=== PATIENT | female | born 1965 | race African-American/Black ===

== ENCOUNTER 2022-06-13 20:11 | Inpatient (IN) | payer OTHER ==
[2022-06-13 20:44] VITALS: BMI 16.6
[2022-06-13] MEDS ORDERED: MAG HYDROX/AL HYDROX/SIMETH 30 ML UNIT-DOSE CUP PO PRN (21:15)
[2022-06-13] MEDS ORDERED: BENZONATATE 200 MG CAPSULE PO PRN (21:15)
[2022-06-13] MEDS ORDERED: BENZOCAINE/MENTHOL (CHLORASEPTIC ) LOZENGE MM PRN (21:15)
[2022-06-13] MEDS ORDERED: ACETAMINOPHEN 325 MG TABLET (FP) PO PRN (21:15)
[2022-06-13] MEDS ORDERED: POLYETHYLENE GLYCOL (HEALTHYLAX) 3350 17 GM PACKET PO PRN (21:15)
[2022-06-13] MEDS ORDERED: NALOXONE HCL (KLOXXADO) 8 MG SPRAY NS PRN (21:15)
[2022-06-13] MEDS ORDERED: LOPERAMIDE HCL 2 MG CAPSULE PO PRN (21:15)
[2022-06-13] MEDS ORDERED: guaiFENesin 600 MG TABLET.ER (FP) PO PRN (21:15)
[2022-06-13] MEDS ORDERED: TUBERCULIN PPD 5 TU/0.1ML SYRINGE (IN PATIENT USE ONLY) ID ONE (21:15)
[2022-06-13] MEDS ORDERED: NALOXONE HCL 0.4 MG/ML VIAL IM PRN (21:15)
[2022-06-13] MEDS ORDERED: MAGNESIUM HYDROX 2400MG/30ML ORAL SUSPENSION 30 ML CUP PO PRN (21:15)
[2022-06-14] MEDS ORDERED: TUBERCULIN PPD 5 TU/0.1ML VIAL ID ONE (00:52)
[2022-06-14] MEDS: MELATONIN 5 MG TABLETS PO SCH ×2 (01:03→21:52)
[2022-06-14] MEDS: THIAMINE HCL 100 MG TABLET (FP) PO SCH ×2 (01:03→21:52)
[2022-06-14] MEDS: PRENATAL VITAMINS W/ FOLIC ACID TABLET (FP) PO SCH (10:41)
[2022-06-14] MEDS: NICOTINE 21 MG/24 HOURS TOPICAL PATCH TD SCH (10:41)
[2022-06-14 11:44] LABS: HEMATOCRIT 38.5 % (32.4-45.2); HEMOGLOBIN 13.2 GM/dL (10.7-15.3); MCH 33.9 pg (25.7-33.7); MCHC 34.2 g/dl (32.0-36.0); MEAN CELL VOLUME 98.9 fl (80-96); MEAN PLT VOLUME 8.5 fl (7.5-11.1); PLATELET COUNT 300 10^3/uL (134-434); RBC 3.89 M/mm3 (3.60-5.2); RDW 13.6 % (11.6-15.6); WHITE BLOOD COUNT 5.5 K/mm3 (4.0-10.0)
[2022-06-14 11:49] LABS: BLOOD UREA NITROGEN 23.3 mg/dL (7-18)
[2022-06-14 11:50] LABS: ALBUMIN 3.2 g/dl (3.4-5.0)
[2022-06-14 11:53] LABS: CREATININE 0.8 mg/dL (0.55-1.3)
[2022-06-14 11:54] LABS: CALCIUM 8.8 mg/dL (8.5-10.1)
[2022-06-14 11:56] LABS: BILIRUBIN,TOTAL 0.3 mg/dL (0.2-1); TOT PROT 6.6 g/dl (6.4-8.2)
[2022-06-14 12:44] LABS: SYPHILIS W/ RPR CONF REACTIVE (NONREACTIVE)
[2022-06-14] MEDS: IBUPROFEN 600 MG TABLET (FP) PO PRN (17:16)
[2022-06-14] MEDS ORDERED: cloNIDine HCL 0.1 MG TABLET PO ONE (18:53)
[2022-06-15] MEDS: NICOTINE 21 MG/24 HOURS TOPICAL PATCH TD SCH (10:04)
[2022-06-15] MEDS: PRENATAL VITAMINS W/ FOLIC ACID TABLET (FP) PO SCH (10:05)
[2022-06-15] MEDS: amLODIPine BESYLATE 10 MG TABLET (FP) PO SCH (17:58)
[2022-06-15] MEDS: THIAMINE HCL 100 MG TABLET (FP) PO SCH (21:41)
[2022-06-15] MEDS: cloNIDine HCL 0.1 MG TABLET PO PRN (21:42)
[2022-06-15] MEDS: MELATONIN 5 MG TABLETS PO SCH (21:42)
[2022-06-16] MEDS: amLODIPine BESYLATE 10 MG TABLET (FP) PO SCH (10:09)
[2022-06-16] MEDS: PRENATAL VITAMINS W/ FOLIC ACID TABLET (FP) PO SCH (10:09)
[2022-06-16] MEDS: cloNIDine HCL 0.1 MG TABLET PO PRN ×2 (10:10→21:22)
[2022-06-16] MEDS: NICOTINE 21 MG/24 HOURS TOPICAL PATCH TD SCH (10:11)
[2022-06-16 16:53] LABS: URINE APPEARANCE CLEAR; URINE BILIRUBIN NEGATIVE (NEGATIVE); URINE COLOR YELLOW; URINE GLUCOSE (UA) NEGATIVE (NEGATIVE); URINE KETONE NEGATIVE (NEGATIVE); URINE LEUK ESTERASE NEGATIVE (NEGATIVE); URINE NITRITE NEGATIVE (NEGATIVE); URINE PROTEIN NEGATIVE (NEGATIVE)
[2022-06-16] MEDS: THIAMINE HCL 100 MG TABLET (FP) PO SCH (21:22)
[2022-06-16] MEDS: MELATONIN 5 MG TABLETS PO SCH (21:23)
[2022-06-17] MEDS: NICOTINE 21 MG/24 HOURS TOPICAL PATCH TD SCH (10:05)
[2022-06-17] MEDS: IBUPROFEN 600 MG TABLET (FP) PO PRN ×2 (10:07→19:23)
[2022-06-17] MEDS: amLODIPine BESYLATE 10 MG TABLET (FP) PO SCH (10:07)
[2022-06-17] MEDS: PRENATAL VITAMINS W/ FOLIC ACID TABLET (FP) PO SCH (10:07)
[2022-06-17] MEDS: MELATONIN 5 MG TABLETS PO SCH (21:33)
[2022-06-17] MEDS: THIAMINE HCL 100 MG TABLET (FP) PO SCH (21:33)
[2022-06-18] MEDS: amLODIPine BESYLATE 10 MG TABLET (FP) PO SCH (10:10)
[2022-06-18] MEDS: PRENATAL VITAMINS W/ FOLIC ACID TABLET (FP) PO SCH (10:10)
[2022-06-18] MEDS: LACTULOSE 20 GM/30 ML UDC (FOR ORAL USE ONLY) PO PRN (10:11)
[2022-06-18] MEDS: NICOTINE 21 MG/24 HOURS TOPICAL PATCH TD SCH (10:34)
[2022-06-18] MEDS: IBUPROFEN 400 MG TABLET (FP) PO PRN (17:25)
[2022-06-18] MEDS: THIAMINE HCL 100 MG TABLET (FP) PO SCH (21:25)
[2022-06-18] MEDS: MELATONIN 5 MG TABLETS PO SCH (21:25)
[2022-06-18] MEDS: IBUPROFEN 600 MG TABLET (FP) PO PRN (21:28)
[2022-06-19] MEDS: LACTULOSE 20 GM/30 ML UDC (FOR ORAL USE ONLY) PO PRN (07:28)
[2022-06-19] MEDS: amLODIPine BESYLATE 10 MG TABLET (FP) PO SCH (10:16)
[2022-06-19] MEDS: NICOTINE 21 MG/24 HOURS TOPICAL PATCH TD SCH (10:17)
[2022-06-19] MEDS: PRENATAL VITAMINS W/ FOLIC ACID TABLET (FP) PO SCH (10:17)
[2022-06-19] MEDS: IBUPROFEN 600 MG TABLET (FP) PO PRN (10:24)
[2022-06-19] MEDS ORDERED: COLLOIDAL OATMEAL 1 BAR EACH TP PRN (17:40)
[2022-06-19] MEDS: MELATONIN 5 MG TABLETS PO SCH (21:53)
[2022-06-19] MEDS: THIAMINE HCL 100 MG TABLET (FP) PO SCH (21:53)
[2022-06-19] MEDS: IBUPROFEN 400 MG TABLET (FP) PO PRN (21:54)
[2022-06-19] MEDS: ALBUTEROL SO4 HFA INHALER IH PRN (21:55)
[2022-06-20] MEDS: amLODIPine BESYLATE 10 MG TABLET (FP) PO SCH (09:52)
[2022-06-20] MEDS: NICOTINE 21 MG/24 HOURS TOPICAL PATCH TD SCH (09:52)
[2022-06-20] MEDS: PRENATAL VITAMINS W/ FOLIC ACID TABLET (FP) PO SCH (09:52)
[2022-06-20] MEDS: IBUPROFEN 400 MG TABLET (FP) PO PRN (09:54)
[2022-06-20] MEDS: cloNIDine HCL 0.1 MG TABLET PO PRN (09:54)
[2022-06-20] MEDS: ALBUTEROL SO4 HFA INHALER IH PRN (21:11)
[2022-06-20] MEDS: THIAMINE HCL 100 MG TABLET (FP) PO SCH (21:12)
[2022-06-20] MEDS: MELATONIN 5 MG TABLETS PO SCH (21:12)
[2022-06-21] MEDS: LACTULOSE 20 GM/30 ML UDC (FOR ORAL USE ONLY) PO PRN (06:29)
[2022-06-21] MEDS: PRENATAL VITAMINS W/ FOLIC ACID TABLET (FP) PO SCH (10:10)
[2022-06-21] MEDS: amLODIPine BESYLATE 10 MG TABLET (FP) PO SCH (10:10)
[2022-06-21] MEDS: NICOTINE 21 MG/24 HOURS TOPICAL PATCH TD SCH (10:11)
[2022-06-21] MEDS: IBUPROFEN 400 MG TABLET (FP) PO PRN (10:13)
[2022-06-21] MEDS: MELATONIN 5 MG TABLETS PO SCH (21:15)
[2022-06-21] MEDS: THIAMINE HCL 100 MG TABLET (FP) PO SCH (21:16)
[2022-06-21] MEDS: cloNIDine HCL 0.1 MG TABLET PO PRN (21:29)
[2022-06-22] MEDS: LACTULOSE 20 GM/30 ML UDC (FOR ORAL USE ONLY) PO PRN (06:55)
[2022-06-22] MEDS: NICOTINE 21 MG/24 HOURS TOPICAL PATCH TD SCH (09:58)
[2022-06-22] MEDS: PRENATAL VITAMINS W/ FOLIC ACID TABLET (FP) PO SCH (09:58)
[2022-06-22] MEDS: amLODIPine BESYLATE 10 MG TABLET (FP) PO SCH (09:58)
[2022-06-22] MEDS: cloNIDine HCL 0.1 MG TABLET PO PRN (21:23)
[2022-06-22] MEDS: SUVOREXANT 10 MG TABLET PO PRN (21:23)
[2022-06-22] MEDS: THIAMINE HCL 100 MG TABLET (FP) PO SCH (21:23)
[2022-06-23] MEDS: PRENATAL VITAMINS W/ FOLIC ACID TABLET (FP) PO SCH (09:50)
[2022-06-23] MEDS: amLODIPine BESYLATE 10 MG TABLET (FP) PO SCH (09:50)
[2022-06-23] MEDS: NICOTINE POLACRILEX 2 MG GUM BUC PRN ×2 (09:51→14:45)
[2022-06-23] MEDS: NICOTINE 21 MG/24 HOURS TOPICAL PATCH TD SCH (09:51)
[2022-06-23] MEDS: THIAMINE HCL 100 MG TABLET (FP) PO SCH (21:08)
[2022-06-23] MEDS: SUVOREXANT 10 MG TABLET PO PRN (21:09)
[2022-06-24] MEDS: PRENATAL VITAMINS W/ FOLIC ACID TABLET (FP) PO SCH (09:34)
[2022-06-24] MEDS: amLODIPine BESYLATE 10 MG TABLET (FP) PO SCH (09:34)
[2022-06-24] MEDS: NICOTINE 21 MG/24 HOURS TOPICAL PATCH TD SCH (09:34)
[2022-06-24] MEDS: NICOTINE POLACRILEX 2 MG GUM BUC PRN ×2 (09:35→18:23)
[2022-06-24] MEDS: THIAMINE HCL 100 MG TABLET (FP) PO SCH (21:36)
[2022-06-24] MEDS: SUVOREXANT 10 MG TABLET PO PRN (21:36)
[2022-06-24] MEDS: ALBUTEROL SO4 HFA INHALER IH PRN (21:36)
[2022-06-24 22:00] VITALS: RESP 18
[2022-06-25 07:21] VITALS: BP 138/72; PULSE 69; TEMP 98.4
[2022-06-25] MEDS: PRENATAL VITAMINS W/ FOLIC ACID TABLET (FP) PO SCH (09:24)
[2022-06-25] MEDS: amLODIPine BESYLATE 10 MG TABLET (FP) PO SCH (09:24)
[2022-06-25] MEDS: NICOTINE 21 MG/24 HOURS TOPICAL PATCH TD SCH (09:25)
== END 2022-06-25 10:16 | disposition home or self-care (01) | DRG 772 ==
LOC: YASAS 20:11 → Y5N 21:40
PROVIDERS: ADMIT Surgery; ATTEND Surgery
PROC: HZ42ZZZ Group Counseling for Substance Abuse Treatment, Cognitive-Behavioral (ICD-10-PCS; principal; 2022-06-13)
DX: F14.20 Cocaine dependence, uncomplicated (principal); F12.20 Cannabis dependence, uncomplicated; F17.210 Nicotine dependence, cigarettes, uncomplicated; F19.282 Other psychoactive substance dependence with psychoactive substance-induced sleep disorder; F32.9 Major depressive disorder, single episode, unspecified; I10 Essential (primary) hypertension; J45.909 Unspecified asthma, uncomplicated; M54.50 Low back pain, unspecified; G89.29 Other chronic pain; N39.0 Urinary tract infection, site not specified; Z28.310 Unvaccinated for COVID-19; Z28.9 Immunization not carried out for unspecified reason; Z88.0 Allergy status to penicillin
CPT/HCPCS: 36415; 80053; 81003; 82607; 82746; 85027; 86593; 86780; 86803; 87086; 87522; 87811; 93005; 93010; C9803-CS; U0003; U0005